=== PATIENT | male | born 1935 | race Caucasian/White ===

== ENCOUNTER 2022-05-10 22:40 | Inpatient (IN) | payer MEDICARE, BC, SELFPAY ==
[2022-05-10 22:41] VITALS: BMI 24.3
[2022-05-10 22:43] VITALS: BP 117/92; PULSE 78; PULSE 96; RESP 16; TEMP 36.9; O2SAT 97; O2SAT 98
--- NOTE | 2022-05-10 22:48 | XRR_ITS ---
PROCEDURE INFORMATION: Exam: XR Abdomen Exam date and time: 05/10/2022 11:20 PM Age: 86 years old Clinical indication: Condition or disease; Other: Rectal CA. Colostomy 10 days ago; Prior surgery; Surgery date: <1 month; Additional info: Constipation TECHNIQUE: Imaging protocol: Radiologic exam of the abdomen. Views: Frontal supine view of the abdomen. 1 View. COMPARISON: No relevant prior studies available. FINDINGS: Gastrointestinal tract: Dilated small bowel loops measuring up to 4.6 cm suggestive of an obstruction. Bones/joints: Unremarkable. Soft tissues: Subcutaneous emphysema suspected in the inguinal regions bilaterally of uncertain etiology, consider correlation with CT scan. XR/XR KUB [id number] IMPRESSION: 1. Dilated small bowel loops measuring up to 4.6 cm suggestive of an obstruction. 2. Subcutaneous emphysema suspected in the inguinal regions bilaterally of uncertain etiology, consider correlation with CT scan.
[2022-05-10 22:56] VITALS: BP 122/94; O2SAT 95
[2022-05-10 23:00] VITALS: BP 122/94; O2SAT 97
--- NOTE | 2022-05-10 23:04 | CTR_ITS ---
PROCEDURE INFORMATION: Exam: CT Abdomen And Pelvis Without Contrast Exam date and time: 05/10/2022 11:30 PM Age: 86 years old Clinical indication: Abdominal pain; Generalized; Prior surgery; Surgery date: <1 month; Patient HX: Diffuse abd pain with decreased colostomy output. Bowel resection with colostomy eight days ago. History of colorectal cancer. TECHNIQUE: Imaging protocol: Computed tomography of the abdomen and pelvis without contrast. Radiation optimization: All CT scans at this facility use at least one of these dose optimization techniques: automated exposure control; mA and/or kV adjustment per patient size (includes targeted exams where dose is matched to clinical indication); or iterative reconstruction. REPORTING DATA: Count of CT and Cardiac NM exams in prior 12 months: This patient has received 0 known CTs and 0 known cardiac nuclear medicine studies in the 12 months prior to the current study. COMPARISON: CR (ABDOMEN, ) 05/10/2022 11:20 PM RADIATION DOSE METRICS: Total DLP (mGy-cm): 884.64 FINDINGS: Lungs: Bibasilar atelectasis. Coronary arteries: Coronary artery atherosclerotic calcifications. Liver: Normal. No mass. Gallbladder and bile ducts: Cholelithiasis suspected. Pancreas: Normal. No ductal dilation. Spleen: Normal. No splenomegaly. Adrenal glands: Normal. No mass. Kidneys and ureters: Bilateral renal cysts, negative for follow-up advised. Left kidney hyperdense cyst. Right kidney punctate parenchymal benign calcification. Stomach and bowel: Dilated small bowel loops to 4.5 cm may reflect an evolving obstruction, potentially high-grade given the degree of dilation with a possible transition point seen right abdomen where a narrowed loop of bowel is seen deep to the ostomy site. Right paramidline colostomy seen. Appendix: No evidence of appendicitis. Intraperitoneal space: Trace free air in the abdomen, may be related to recent colostomy. Vasculature: Unremarkable. No abdominal aortic aneurysm. Lymph nodes: Unremarkable. No enlarged lymph nodes. Urinary bladder: Unremarkable as visualized. Reproductive: Prostate gland enlarged indenting the base of the urinary bladder. Bones/joints: Unremarkable. No acute fracture. Soft tissues: Subcutaneous emphysema about the abdomen and pelvis may be related to recent surgery. CT/CT abdomen pelvis wo con [id number] IMPRESSION: 1. Dilated small bowel loops to 4.5 cm may reflect an evolving obstruction, potentially high-grade given the degree of dilation with a possible transition point seen right abdomen where a narrowed loop of bowel is seen deep to the ostomy site. 2. Trace free air in the abdomen, may be related to recent colostomy. 3. Bilateral renal cysts, negative for follow-up advised. 4. Left kidney hyperdense cyst. 5. Right kidney punctate parenchymal benign calcification. 6. Coronary artery atherosclerotic calcifications. 7. Bibasilar atelectasis. 8. Subcutaneous emphysema about the abdomen and pelvis may be related to recent surgery. 9. Right paramidline colostomy seen. 10. Cholelithiasis suspected. 11. Prostate gland enlarged indenting the base of the urinary bladder. COMMENTS: Consistent with the [employer]'s Incidental Findings Committee white paper (J Am Kaelyn Radiol 2018): Any incidental renal lesion less than 1 cm or classified as too small to characterize, or any incidental cystic renal lesion characterized as simple-appearing, is likely benign. No follow-up imaging is recommended for these lesions per consensus recommendations based on imaging criteria.
--- NOTE | 2022-05-10 23:12 | ED_ITS ---
HPI - Abdominal Pain General: Chief Complaint: Abdominal Pain Stated Complaint: DECREASED COLOSTOMY OUTPUT Time Seen by Provider: 05/10/22 22:43 Source: patient Mode of arrival: ambulatory Limitations: no limitations History of Present Illness: 86-year-old male has a history of colon cancer he was admitted at [facility] 8 days ago had a bowel resection with a colostomy states that he initially was having some difficulty going to the bathroom they started him on some laxatives he states he was then having diarrhea and they give him Imodium this morning discharging this afternoon he states that he has not had any output and has had some nausea he is worried about his obstruction he denies any pain denies any fever. Associated Symptoms: Reports constipation and nausea; Denies chills, dysuria and fever(s) Review of Systems Const: Denies: fever(s), chills, body aches or change in appetite Eyes: Denies: blurry vision or eye discomfort ENMT: Denies: throat pain or dental pain Card: Denies: chest pain Resp: Denies: dyspnea GI: Reports: nausea and constipation : Denies: dysuria Musc: Denies: neck pain or back pain Skin/Breast: Denies: rash Neuro: Denies: headache(s) Psych: Denies: depression Alonso/Lymph: Denies: easy bruising All/Imm: Denies: urticaria PFSH ED PFSH: Medical History (Updated 05/11/22 @ 01:04 by Geno Navarrete MD) Colon cancer Social History (Updated 05/10/22 @ 23:12 by Geno Navarrete MD) Substance/Drug Use: never Physical Exam Const: COMMON NORMALS: no acute distress, patient oriented x3 and healthy appearing HENMT: COMMON NORMALS: normocephalic and atraumatic HEAD & SCALP: normocephalic and atraumatic Eye: COMMON NORMALS: Equal, round and reactive pupils present and EOMs intact bilaterally PUPIL: Yes Equal, round and reactive pupils present Neck/C-Spine: COMMON NORMALS: full ROM and supple Chest: COMMONS NORMALS: normal inspection of the chest and normal palpation of entire chest wall Resp: COMMON NORMALS: normal respiratory effort, No retractions, No use of accessory muscles and clear to auscultation bilaterally AUSCULTATION: clear to auscultation bilaterally Cardio: COMMON NORMALS: regular rate, regular rhythm and No murmurs present (Cardio) RATE: regular rate RHYTHM: regular rhythm GI: COMMON NORMALS: Normal to inspection, nondistended, normoactive bowel sounds present, Soft to palpation, non-tender and no masses PALPATION: Yes Soft to palpation OTHER: Abdomen is nondistended or tender ostomy is in place minimal output in the ostomy Extremity: COMMON NORMALS: normal to inspection and full ROM Neuro: COMMON NORMALS: patient oriented x3, moves all extremities and no focal motor deficits Psych: COMMON NORMALS: mental status grossly normal, Normal thought process present and cooperative THOUGHT PROCESS: Normal thought process present Skin: COMMON NORMALS: no rashes or lesions noted and no wounds GENERAL SKIN EXAM: no rashes or lesions noted Course Vital Signs: Vital signs: Vital Signs Temperature 98.4 F 05/10/22 22:43 Pulse Rate 78 05/10/22 22:43 Respiratory Rate 16 05/10/22 22:43 Blood Pressure 107/74 05/11/22 00:00 Pulse Oximetry 97 05/10/22 23:00 Oxygen Delivery Me thod 05/10/22 22:43 MDM - Abdominal Pain Medical Decision Making Patient presents for small bowel obstruction his abdominal exam here is benign white count is normal I spoke to the hospitalist will place an NG tube and admit at this time. Lab Data 05/10/22 22:53 05/10/22 22:53 Labs/Radiology: Radiology Impressions KUB X-Ray 05/10/22 22:48 IMPRESSION: 1. Dilated small bowel loops measuring up to 4.6 cm suggestive of an obstruction. 2. Subcutaneous emphysema suspected in the inguinal regions bilaterally of uncertain etiology, consider correlation with CT scan. Abdomen/Pelvis CT 05/10/22 23:04 IMPRESSION: 1. Dilated small bowel loops to 4.5 cm may reflect an evolving obstruction, potentially high-grade given the degree of dilation with a possible transition point seen right abdomen where a narrowed loop of bowel is seen deep to the ostomy site. 2. Trace free air in the abdomen, may be related to recent colostomy. 3. Bilateral renal cysts, negative for follow-up advised. 4. Left kidney hyperdense cyst. 5. Right kidney punctate parenchymal benign calcification. 6. Coronary artery atherosclerotic calcifications. 7. Bibasilar atelectasis. 8. Subcutaneous emphysema about the abdomen and pelvis may be related to recent surgery. 9. Right paramidline colostomy seen. 10. Cholelithiasis suspected. 11. Prostate gland enlarged indenting the base of the urinary bladder. COMMENTS: Consistent with the [employer]'s Incidental Findings Committee white paper (J Am Kaelyn Radiol 2018): Any incidental renal lesion less than 1 cm or classified as too small to characterize, or any incidental cystic renal lesion characterized as simple-appearing, is likely benign. No follow-up imaging is recommended for these lesions per consensus recommendations based on imaging criteria. Laboratory Results WBC 8.8 10^3/uL (4.0-10.0) 05/10/22 22:53 RBC 5.16 10^6/uL (4.1-5.3) 05/10/22 22:53 Hgb 14.7 g/dL (11.7-16.6) 05/10/22 22:53 Hct 44.8 % (42.0-52.0) 05/10/22 22:53 MCV 86.8 fl (80-94) 05/10/22 22:53 MCH 28.5 pg (28.0-34.0) 05/10/22 22:53 MCHC 32.8 g/dL (30.0-36.0) 05/10/22 22:53 RDW 13.4 % (12.1-15.1) 05/10/22 22:53 Plt Count 304 10^3/cmm (130-400) 05/10/22 22:53 MPV 10.3 fL (7.4-10.4) 05/10/22 22:53 Lymph % (Auto) Not Reportable 05/10/22 22:53 [place] % (Auto) Not Reportable 05/10/22 22:53 Lymph # (Auto) Not Reportable 05/10/22 22:53 [place] # (Auto) Not Reportable 05/10/22 22:53 Total Counted 100 (0-100) 05/10/22 22:53 Atypical Lymphs % 0.0 % (0-5) 05/10/22 22:53 Absolute Neutrophils 6.7 10^3/cmm (1.4-6.5) H 05/10/22 22:53 Segmented Neutrophils 72 % 05/10/22 22:53 Abs Segm Neuts (Man) 6.3 10/cmm (1.6-7.1) 05/10/22 22:53 Band Neutrophils 4.0 % 05/10/22 22:53 Abs Band Neuts (Man) 0.4 10^3/cmm (0.0-1.2) 05/10/22 22:53 Absolute Lymphocytes 0.6 10^3/cmm (1.2-3.4) L 05/10/22 22:53 Lymphocytes (Manual) 7 % 05/10/22 22:53 Monocytes (Manual) 8.0 % 05/10/22 22:53 Absolute Monocytes 0.7 10^3/cmm (0.1-0.6) H 05/10/22 22:53 Eosinophils (Manual) 1 % 05/10/22 22:53 Absolute Eosinophils 0.0 10^3/cmm (0.0-0.7) 05/10/22 22:53 Basophils (Manual) 0.0 % 05/10/22 22:53 Absolute Basophils 0.0 10^3/cmm (0.0-0.2) 05/10/22 22:53 Metamyelocytes 1.0 % 05/10/22 22:53 Myelocytes 7.0 % 05/10/22 22:53 Platelet Estimate Normal (Normal) 05/10/22 22:53 Sodium 128 mmol/L (136-145) L 05/10/22 22:53 Potassium 4.8 mmol/L (3.5-5.1) 05/10/22 22:53 Chloride 88 mmol/L (98-107) L 05/10/22 22:53 Carbon Dioxide 27 mmol/L (22-29) 05/10/22 22:53 Anion Gap 17.8 (5-19) 05/10/22 22:53 BUN 24 mg/dL (8-23) H 05/10/22 22:53 Creatinine 1.2 mg/dL (0.7-1.2) 05/10/22 22:53 GFR Calculation Not Reportable 05/10/22 22:53 Glucose 115 mg/dL (65-115) 05/10/22 22:53 Calculated Osmolality 271 mOsm/kg (285-295) L 05/10/22 22:53 Lactate 1.6 mmol/L (0.5-2.2) 05/10/22 22:53 Calcium 10.0 mg/dL (8.5-10.5) 05/10/22 22:53 Total Bilirubin 0.7 mg/dL (0.15-1.2) 05/10/22 22:53 AST 37 U/L (0-40) 05/10/22 22:53 ALT 40 U/L (0-41) 05/10/22 22:53 Alkaline Phosphatase 86 U/L (40-130) 05/10/22 22:53 Total Protein 6.9 g/dL (6.6-8.7) 05/10/22 22:53 Albumin 3.8 g/dL (3.5-5.2) 05/10/22 22:53 Globulin 3.1 g/dL (1.3-4.6) 05/10/22 22:53 Lipase 35 U/L (13-60) 05/10/22 22:53 Discharge Plan Discharge Patient Disposition: Admitted As Inpatient Clinical Impression: Small bowel obstruction, Colon cancer Referrals: Kushal Guerrier MD [Primary Care Provider] - Coding Level of Care Code ED [employer] Supervisor for Sindy Hdez
[2022-05-10 23:26] LABS: Alanine Aminotransferase 40 U/L (0-41); Albumin Level 3.8 g/dL (3.5-5.2); Alkaline Phosphatase 86 U/L (40-130); Anion Gap 17.8 (5-19); Aspartate Amino Transferase 37 U/L (0-40); Blood Urea Nitrogen 24 mg/dL (8-23); Carbon Dioxide 27 mmol/L (22-29); Chloride 88 mmol/L (98-107); Globulin 3.1 g/dL (1.3-4.6); Glucose 115 mg/dL (65-115); Lipase 35 U/L (13-60); Osmolality Calculated 271 mOsm/kg (285-295); Potassium 4.8 mmol/L (3.5-5.1); Sodium 128 mmol/L (136-145); Total Bilirubin 0.7 mg/dL (0.15-1.2); Total Protein 6.9 g/dL (6.6-8.7)
[2022-05-10 23:30] VITALS: BP 128/86
[2022-05-10 23:57] LABS: Hematocrit 44.8 % (42.0-52.0); Hemoglobin 14.7 g/dL (11.7-16.6); Mean Corpuscular HGB Conc 32.8 g/dL (30.0-36.0); Mean Corpuscular Hemoglobin 28.5 pg (28.0-34.0); Mean Corpuscular Volume 86.8 fl (80-94); Mean Platelet Volume 10.3 fL (7.4-10.4); Platelet Count 304 10^3/cmm (130-400); Red Blood Count 5.16 10^6/uL (4.1-5.3); Red Cell Distribution Width 13.4 % (12.1-15.1); White Blood Count 8.8 10^3/uL (4.0-10.0)
[2022-05-11] VITALS (10 sets, daily range): BP systolic 99–128; BP diastolic 55–94; PULSE 67–87; RESP 16–18; TEMP 36.5–37; O2SAT 90–99
[2022-05-11 00:10] LABS: Slide Review Slide Review Perform
[2022-05-11 00:11] LABS: Total Cells Counted 100 (0-100)
[2022-05-11 00:18] LABS: Absolute Segmented Neutrophil 6.3 10/cmm (1.6-7.1); Band Neutrophils Absolute 0.4 10^3/cmm (0.0-1.2); Eosinophils 1 %; Lymphocytes 7 %; Monocytes Absolute 0.7 10^3/cmm (0.1-0.6); Segmented Neutrophils 72 %
[2022-05-11 00:19] LABS: Absolute Neutrophil 6.7 10^3/cmm (1.4-6.5); Lymphocytes Absolute 0.6 10^3/cmm (1.2-3.4); Platelet Estimate Normal (Normal)
[2022-05-11 00:29] LABS: Lactate (Lactic Acid level) 1.6 mmol/L (0.5-2.2)
[2022-05-11] MEDS: LORazepam 2 mg/mL INJ 1 mL 0.5 MG IVP (01:08)
--- NOTE | 2022-05-11 01:24 | XRR_ITS ---
PROCEDURE INFORMATION: Exam: XR Chest Exam date and time: 05/11/2022 1:41 AM Age: 86 years old Clinical indication: Device placement; Ng tube; Patient HX: Check S/P ng placement. TECHNIQUE: Imaging protocol: Radiologic exam of the chest. Views: 1 view. COMPARISON: CT abdomen pelvis con [id number] 05/10/2022 11:30 PM FINDINGS: Tubes, catheters and devices: Nasogastric tube is in good position. Lungs: Unremarkable. No consolidation. Pleural spaces: Unremarkable. No pleural effusion. No pneumothorax. Heart/Mediastinum: Unremarkable. No cardiomegaly. Bones/joints: Unremarkable. Soft tissues: Small amount of soft tissue gas in the lower chest/upper abdominal wall. XR/XR chest 1V portable [id number] IMPRESSION: Nasogastric tube is in good position.
--- NOTE | 2022-05-11 03:13 | PC.NURSE ---
patient's son was at bedside at the time of arrival on the [facility] surg unit. The pt has an NG tube that was placed in the ED. The pt has a new colostomy that was placed at [facility], the bag was emptied and stoma assessed and appeared to be normal. Since the NG tube placement the pt reports decrease in abd discomfort.
--- NOTE | 2022-05-11 05:00 | P.HP_ITS ---
Providers/Chief Complaint Admitting Physician: Katherine Swift MD Primary Care Provider: Kushal Guerrier MD Chief Complaint: DECREASED COLOSTOMY OUTPUT History of Present Illness Crystal Fletcher is a 86 year old male with history of rectal cancer that was diagnosed in August 2021, status post chemoradiation at [facility], underwent recent surgery at [facility], currently has a colostomy in place. He was just discharged from the hospital yesterday. It appears his postop course was compl icated by ileus for which she had an NG tube during the course of his admission there. By the time of discharge she was having good stoma output. In fact it appears he was started to have extremely loose bowel movements multiple times a day through his colostomy therefore he was advised to take Imodium at home. He returned home yesterday afternoon and shortly afterwards noticed that his belly was distended, and he started feeling extremely nauseous. He had abdominal pain and noticed that his stoma did not have any output. He called his surgeon's office who advised him to present to the nearest emergency room. CT of his abdomen and pelvis showed dilated small bowel loops up to 4.5 cm which may represent an evolving obstruction, potentially high-grade given the degree of dilatation with a possible transition point seen near the right abdomen. Trace free air likely related to recent surgery. Subcutaneous emphysema. Review of Systems General: Reports: 10 or more systems reviewed and unremarkable except in HPI and below Const: Denies: fever(s), chills or body aches Eyes: Denies: change in vision, blurry vision or photophobia ENMT: Reports: hoarseness; Denies: throat pain, enlarged tonsils, odynophagia or nasal congestion Card: Denies: chest pain, palpitations, irregular heart rhythm, edema, swelling of feet/ankles, lightheadedness, pre-syncope, dyspnea on exertion or orthopnea Resp: Denies: dyspnea, productive cough, non-productive cough, wheezing, stridor, pain on inspiration, change in phlegm color, hemoptysis or chest congestion GI: Denies: abdominal pain, nausea, vomiting, hematemesis, coffee ground nalini sis, dysphagia, heartburn, diarrhea, constipation, GI cramping, change in stool character, hematochezia or melena : Denies: flank pain, dysuria, urinary frequency, urinary urgency, urinary hesitancy or hematuria Musc: Denies: neck pain, back pain, extremity pain, joint swelling, joint warmth or deformity Neuro: Denies: headache(s), numbness in extremities, weakness in extremities, sensory changes, difficulty walking, frequent falls, dizziness, vertigo, behavioral changes, Slurred speech present or seizure-like activity Psych: Denies: anxiety, depression, suicidal ideation or homicidal ideation Endo: Denies: polyuria, polydipsia, tired all the time, cold intolerance or hot flashes Alonso/Lymph: Denies: easy bruising or easy bleeding Medications/Allergies Allergies Allergy/AdvReac Type Severity Reaction Status Date / Time No Known Allergies Allergy Verified 05/10/22 22:55 PFSH Acute PFSH: Medical History (Updated 05/11/22 @ 01:04 by Geno Navarrete MD) Colon cancer Social History (Updated 05/10/22 @ 23:12 by Geno Navarrete MD) Substance/Drug Use: never Vitals/I&O/Wt Last Vital Signs Temp 98.3 F 05/11/22 03:56 Pulse 81 05/11/22 03:56 Resp 17 05/11/22 03:56 BP 115/67 05/11/22 03:56 Pulse Ox 99 05/11/22 03:56 O2 Del Method 05/11/22 03:56 05/10/22 05/10/22 05/11/22 14:59 22:59 06:59 Output Total 1000 / 1000 Balance -1000 / -1000 Weight last 48 hrs Weight 95.254 kg Physical Exam Narrative: General: No acute distress, AO x3 HEENT: PERRLA, pupils bilaterally equal and reactive, pallors not present Chest: Normal vesicular breath sounds, no added sounds, equal good air entry bilaterally CVS: S1-S2 regular, no murmurs, no tachycardia, no gallops, no rubs Abdomen: Soft, mildly distended, nontender, colostomy in place Neuro: No focal deficits, no facial deformity, AO x3, power 5/5 in all limbs Data 05/10/22 22:53 05/10/22 22:53 Other Labs: CT/CT abdomen pelvis wo con [id number] IMPRESSION: 1. ? Dilated small bowel loops to 4.5 cm may reflect an evolving obstruction, potentially high-grade given the degree of dilation with a possible transition point seen right abdomen where a narrowed loop of bowel is seen deep to the ostomy site. 2. ? Trace free air in the abdomen, may be related to recent colostomy. 3. ? Bilateral renal cysts, negative for follow-up advised. 4. ? Left kidney hyperdense cyst. 5. ? Right kidney punctate parenchymal benign calcification. 6. ? Coronary artery atherosclerotic calcifications. 7. ? Bibasilar atelectasis. 8. ? Subcutaneous emphysema about the abdomen and pelvis may be related to recent surgery. 9. ? Right paramidline colostomy seen. 10. ? Cholelithiasis suspected. 11.? Prostate gland enlarged indenting the base of the urinary bladder. A&P Assessment and plan (1) Small bowel obstruction: Small bowel obstrcution on CT after recently having ileus post operatively NGT was inserted in the ER, pulled out by patient after getting up to the floor. He does not wish 1 to be reinserted at this time. Currently there is stool in his stoma. About 500 cc greenish material suctioned from the NG. General surgery has been consulted. N.p.o. until surgery assessment. Attempt was made to transfer patient to [facility] from the ER however [facility] declined transfer citing there are no beds. (2) Colon cancer: Attestations Medical Necessity Statement*: Anticipate less than 2 midnight stay Coding Level of Care Code Acute Code for Chg Fwd Moderate MDM includes number and complexity of problems actively addressed during encounter, amount and/or complexity of data reviewed/ordered and described risk of complication, morbidity or mortality of management as documented Diagnoses Small bowel obstruction K56.609 Colon cancer C18.9
--- NOTE | 2022-05-11 05:28 | PC.NURSE ---
This nurse found the pts NG tube pulled out by the pt upon rounding. This nurse informed the pt that wants it placed back in. This nurse attempted to re insert another NG tube and the pt became very agitated and combative. This nurse immediately let the son know what had taken place. The charge nurse has been made aware of the situation as well. The pt was informed of the possible risk of not getting another NG tube placed by this nurse with the son at bedside and being in agreement that his father is able to make that decision at this time to leave the NG tube out. The pt verbalized understanding of the risk and is still refusing the NG tube at this time, with the Son being completely aware of the entire situation and a witness to the conversation.
--- NOTE | 2022-05-11 05:45 | PC.NURSE ---
This nurse notified in person about the entire situation of the pt not allowing anyone to re insert an NG tube and refusing all ordered medications and becoming very agitated. No new orders have been received.
[2022-05-11] MEDS: dextrose 5%-sod chloride 0.9% 1,000 ML 75 ML IV ×2 (07:06→20:11)
[2022-05-11] MEDS: enoxaparin 40 mg/0.4 mL Syringe SUBCUT (07:09)
[2022-05-11] MEDS: famotidine 20 mg/2 mL INJ IVP ×2 (07:09→18:36)
--- NOTE | 2022-05-11 08:44 | PC.PHAR ---
pt and pts family verified pts medications-brought in a med list from [facility] also states the pt takes 2 blood pressure meds prn amlodipine 5mg qd prn (90d/s) and benazepril 20mg daily prn (30d/s)filled 12/01/21-states the pt has ultram but doesnt normally take ext shows last filled 01/13/22 5d/s-pt states he takes his metoprolol er 12.5mg daily, flomax 0.8mg hs and levothyroxine 25mg daily every day-
--- NOTE | 2022-05-11 13:01 | PM.CONSULT ---
Providers/Reason For Consult Consulting Physician/Specialty*: Dr. Jhonathan Kenny, DO/General surgery Reason for Consult*: Small bowel obstruction Attending Physician: Erik Stover MD Primary Care Provider: Kushal Guerrier MD History of Present Illness History of Present Illness Crystal Fletcher is a 86 year old male, who just underwent a colorectal resection for rectal cancer at [facility] approximately 9 days ago. He was discharged from [facility] yesterday after having a high output right-sided colostomy and then being given Imodium. Later in the day he developed abdominal distention and nausea. Denies any emesis. He reports that he called the hospital and was told to go to the nearest emergency room. While in the ER here he had an NG tube placed and reportedly 1.5 L was suctioned off. He has since had liquid output from his colostomy. He denies any current nausea or abdominal pain. His ostomy bag has a charcoal vent, therefore it is difficult to ascertain the amount of flatus coming out of the colostomy. CT abdomen pelvis done in the ER shows small bowel dilation up to 4.5 cm with possible transition point near the ostomy. Review of Systems General: Reports: 10 or more systems reviewed and unremarkable except in HPI and below Medications/Allergies Home Medications Medication Instructions Recorded Confirmed Last Taken Type acetaminophen 325 mg tablet 650 mg PO Q6H PRN Pain 05/11/22 05/11/22 Unknown History amlodipine 5 mg tablet 5 mg PO DAILY PRN Blood Pressure 05/11/22 05/11/22 Unknown History aspirin 81 mg tablet,delayed 81 mg PO QAM 05/11/22 05/11/22 Unknown History release benazepril 20 mg tablet 20 mg PO DAILY PRN Blood Pressure 05/11/22 05/11/22 Unknown History levothyroxine 25 mcg tablet 25 mcg PO QAM 05/11/22 05/11/22 Unknown History loperamide 2 mg capsule 2 mg PO Q4H PRN Diarrhea 05/11/22 05/11/22 Unknown History metoprolol succinate 25 mg 12.5 mg PO DAILY 05/11/22 05/11/22 Unknown History tablet,extended release 24 hr tamsulosin 0.4 mg capsule 0.8 mg PO BEDTIME 05/11/22 05/11/22 Unknown History tramadol 50 mg tablet 50 mg PO Q4H PRN Pain 05/11/22 05/11/22 Unknown History Allergies Allergy/AdvReac Type Severity Reaction Status Date / Time lorazepam Allergy ADR-Halluci Verified 05/11/22 08:30 nating Current Medications Generic Name Dose Route Start Last Admin Trade Name Reneq PRN Reason Stop Dose Admin Enoxaparin Sodium 40 mg 05/11/22 05:00 05/11/22 07:09 Enoxaparin 40 Mg/0.4 Ml Syringe SUBCUT 40 mg Q24H NORIS Administration Famotidine 20 mg 05/11/22 05:00 05/11/22 07:09 Famotidine 20 Mg/2 Ml Inj IVP 20 mg Q12H NORIS Administration Dextrose/Sodium Chloride 1,000 mls @ 75 mls/hr 05/11/22 05:00 05/11/22 07:06 Dextrose 5%-Sod Chloride 0.9% IV 75 mls/hr .[id number] NORIS Administration PFSH Acute PFSH: Medical History Colon cancer Social History Substance/Drug Use: never Vitals/I&O/Wt Last Vital Signs Temp 97.7 F 05/11/22 11:37 Pulse 73 05/11/22 11:37 Resp 18 05/11/22 11:37 BP 105/60 05/11/22 11:37 Pulse Ox 95 05/11/22 11:37 O2 Del Method 05/11/22 11:37 05/10/22 05/11/22 05/11/22 22:59 06:59 14:59 Output Total 1050 / 1050 100 / 100 Balance -1050 / -1050 -100 / -100 Weight last 48 hrs Weight 210 lb Physical Exam Narrative: General : Patient is well developed , no acute distress, oriented x3 Head : Normal cephalic, a-traumatic. Ears : Pinnae and external canal are normal. Hearing is normal. Eyes : PERRLA, Sclera and injection are normal. No conjunctival discharge. Nose : Mucous membranes are without erythema. Throat : buccal mucosa is normal, gums are without significant recession or hypertrophy. Lungs : Equal chest rise bilaterally, no use of accessory muscles, trachea is midline. Cor : Rate and rhythm are normal. Abdomen : Soft, ND, NT, no g/r/m Ostomy is pink patent and producing Extremities : No edema, no cyanosis or clubbing, dorsalis pedis pulses are present bilaterally, non-tender to palpation of calves. Upper extremities are normal bilaterally. Back : non-tender to palpation, no CVA tenderness. Neuro : CN II - XII intact, Upper and lower extremities have equal and full strength Data 05/10/22 22:53 05/10/22 22:53 A&P Assessment and plan (1) Small bowel obstruction: Plan Small bowel obstruction is resolving as there is colostomy output now He pulled out his NG tube overnight IV fluids Clear liquid diet Reglan 5 mg every 6 scheduled Conservative management for now. Transferred to [facility] if possible. If he tolerates clear liquids and continues to have ostomy output, we will advance his diet tomorrow for discharge Coding Level of Care Code Acute Code for Chg Fwd Diagnoses Small bowel obstruction K56.609
--- NOTE | 2022-05-11 14:06 | PM.PN ---
Subjective Subjective: Patient was seen this morning, he tells me he feels a lot better, no episodes of nausea or vomiting overnight, he pulled out his NG tube, he is having output from his colostomy Vitals/I&O/Wt Last Vital Signs Temp 97.7 F 05/11/22 11:37 Pulse 73 05/11/22 11:37 Resp 18 05/11/22 11:37 BP 105/60 05/11/22 11:37 Pulse Ox 95 05/11/22 11:37 O2 Del Method 05/11/22 11:37 05/10/22 05/11/22 05/11/22 22:59 06:59 14:59 Output Total 1050 / 1050 100 / 100 Balance -1050 / -1050 -100 / -100 Weight last 48 hrs Weight 95.254 kg Physical Exam Const: COMMON NORMALS: no acute distress and patient oriented x3 Resp: COMMON NORMALS: normal respiratory effort, No retractions, No use of accessory muscles and clear to auscultation bilaterally AUSCULTATION: clear to auscultation bilaterally Cardio: COMMON NORMALS: regular rate, regular rhythm, S1 normal heart sound present and S2 normal heart sound present RATE: regular rate RHYTHM: regular rhythm HEART SOUNDS: S1 normal heart sound present and S2 normal heart sound present GI: COMMON NORMALS: Normal to inspection, nondistended, normoactive bowel sounds present and non-tender OTHER: Colostomy bag in place, with stool Extremity: COMMON NORMALS: no pedal edema Neuro: COMMON NORMALS: patient oriented x3 Psych: COMMON NORMALS: mental status grossly normal Data 05/10/22 22:53 05/10/22 22:53 A&P Assessment and plan (1) Small bowel obstruction: Small bowel obstrcution on CT after recently having ileus post operatively NGT was inserted in the ER, pulled out by patient after getting up to the floor. He does not wish 1 to be reinserted at this time. Currently there is stool in his stoma. About 500 cc greenish material suctioned from the NG. General surgery has been consulted. N.p.o. until surgery assessment. Attempt was made to transfer patient to [facility] from the ER however [facility] declined transfer citing there are no beds. Currently no nausea, vomiting (2) Colon cancer: Attestations Medical Necessity Statement*: Patient requires hospitalization for small bowel obstruction Diagnoses Small bowel obstruction K56.609 Colon cancer C18.9
[2022-05-12] VITALS (9 sets, daily range): BP systolic 99–126; BP diastolic 58–84; PULSE 68–81; RESP 17–18; TEMP 36.3–36.8; O2SAT 94–98
[2022-05-12] MEDS: enoxaparin 40 mg/0.4 mL Syringe SUBCUT (05:14)
[2022-05-12] MEDS: famotidine 20 mg/2 mL INJ IVP ×2 (05:14→17:36)
[2022-05-12 05:52] LABS: Basophils # 0.1 10^3/uL (0.0-0.1); Basophils % 0.9 %; Eosinophils # 0.3 10^3/uL (0.0-0.8); Eosinophils % 3.9 %; Hemoglobin 12.3 g/dL (11.7-16.6); Lymphocytes # 0.6 10^3/uL (0.8-4.8); Lymphocytes % 7.6 %; Mean Corpuscular HGB Conc 31.5 g/dL (30.0-36.0); Mean Corpuscular Hemoglobin 28.8 pg (28.0-34.0); Mean Corpuscular Volume 91.3 fl (80-94); Mean Platelet Volume 10.5 fL (7.4-10.4); Monocytes % 13.1 %; Neutrophils # 4.94 10^3/uL (1.8-7.7); Neutrophils % 65.8 %; Nucleated Red Blood Cells % 0 %; Platelet Count 230 10^3/cmm (130-400); Red Blood Count 4.27 10^6/uL (4.1-5.3); Red Cell Distribution Width 13.9 % (12.1-15.1); White Blood Count 7.5 10^3/uL (4.0-10.0)
[2022-05-12 06:08] LABS: Alanine Aminotransferase 31 U/L (0-41); Albumin Level 3.2 g/dL (3.5-5.2); Alkaline Phosphatase 76 U/L (40-130); Blood Urea Nitrogen 17 mg/dL (8-23); Calcium 9.1 mg/dL (8.5-10.5); Carbon Dioxide 22 mmol/L (22-29); Chloride 96 mmol/L (98-107); Globulin 2.3 g/dL (1.3-4.6); Glucose 100 mg/dL (65-115); Magnesium 1.9 mg/dL (1.7-2.3); Osmolality Calculated 272 mOsm/kg (285-295); Sodium 130 mmol/L (136-145); Total Bilirubin 0.6 mg/dL (0.15-1.2); Total Protein 5.5 g/dL (6.6-8.7)
[2022-05-12 06:23] LABS: Anion Gap 16.4 (5-19); Aspartate Amino Transferase 31 U/L (0-40); Potassium 4.4 mmol/L (3.5-5.1)
[2022-05-12 06:26] LABS: Slide Review Slide Review Perform
--- NOTE | 2022-05-12 08:04 | PM.PN ---
Subjective Subjective: I think I'm doing okay. I can keep liquids down now. What is the plan from here? They told me in [place] that they would close my stoma in 8 weeks Vitals/I&O/Wt Last Vital Signs Temp 97.5 F L 05/12/22 07:32 Pulse 81 05/12/22 07:32 Resp 18 05/12/22 07:32 BP 106/69 05/12/22 07:32 Pulse Ox 96 05/12/22 07:32 O2 Del Method 05/12/22 07:32 05/11/22 05/12/22 05/12/22 22:59 06:59 14:59 Intake Total 1701.25 / 2551.25 240 / 2791.25 Output Total 300 / 400 620 / 1020 Balance 1401.25 / 2151.25 -380 / 1771.25 Weight last 48 hrs Weight 210 lb Physical Exam Narrative: Abdomen remains moderately distended. Stoma is pink and edematous consistent with recent surgery. Data 05/12/22 05:39 05/12/22 05:39 A&P Assessment and plan (1) Small bowel obstruction: Plan Partial ileostomy blockage with postoperative ileus. Continue liquid diet only for today, and if no better by tomorrow, consider water-soluble SBFT to r/o obstruction and reestablish continuity of small bowel function. Attestations Medical Necessity Statement*: Patient continues to manifest moderate abdominal distention, and warrants ongoing bowel rest/observation to affirm return of bowel function, as opposed to obstructed loop ileostomy. Diagnoses Small bowel obstruction K56.609 Time Spent (min) 20 Comment Review/interpretation of abdominal CT, assessment of stoma, discussion with staff.
[2022-05-12] MEDS: dextrose 5%-sod chloride 0.9% 1,000 ML 75 ML IV ×2 (10:06→21:24)
--- NOTE | 2022-05-12 10:18 | PC.CHAP ---
Pastoral Care Encounter/Spiritual Assessment Type of Contact [] Declined captain waiter/waitress visit [] Patient/Family/Request visit [] Outpatient visit [] Follow-up visit [] Physician referral [] Code/Alert [x] Routine visit [] Staff referral [] Actively dying [] Patient sleeping [] Family support [] [] Out of room [] Palliative care [] [x] Receiving care in room [] Pre-surgical visit [] Trauma [] Long length of stay [] ICU visit [] Other: Relational/Emotional Strength [] Patient feels connected with others/family/visitors/staff [] Distress [] Loneliness/isolation [] Abandonment Spirituality of Patient [] Person of Sujata [] Attends Mu-Ism of their Sujata [] Believes in Prayer [] Reads Bible or Scientology materials [] There are Spiritual issues to be addressed Screen Printing Press Operator Interventions [x] Prayer [] Active listening [] Non-anxious presence [] Spiritual/emotional support [] Crisis/trauma care [] Spiritual counseling [] Bereavement support [] Provided bereavement packet [] Provided Bible/devotional materials [] Provided toy/stuffed animal, coloring book to patient or family member [] Provided Communion [] Anointing/[place] [] Salvation [] Completed spiritual assessment [] Other: Impact on Illness or Injury [] Angry [] Fearful [] Anxious [] Often cries [] Exhaustion [] Unable to work [] Unable to attend taoism [] Unable to walk/stand [] Unable to read [] Unable to drive [] Unable to eat/drink [] Unable to sleep [] Unable to be with family [] Patient intubated [] Other: Summary Time spent with patient
--- NOTE | 2022-05-12 14:23 | P.PN_ITS ---
Subjective Subjective: Patient was seen this morning, he sitting up to the side of the bed, he has colostomy output, he feels better Vitals/I&O/Wt Last Vital Signs Temp 97.5 F L 05/12/22 12:00 Pulse 70 05/12/22 12:00 Resp 18 05/12/22 12:00 BP 119/73 05/12/22 12:00 Pulse Ox 96 05/12/22 12:00 O2 Del Method 05/12/22 12:00 05/11/22 05/12/22 05/12/22 22:59 06:59 14:59 Intake Total 1701.25 / 2551.25 240 / 2791.25 1360 / 1360 Output Total 300 / 400 620 / 1020 Balance 1401.25 / 2151.25 -380 / 1771.25 1360 / 1360 Weight last 48 hrs Weight 95.254 kg Physical Exam Const: COMMON NORMALS: no acute distress and patient oriented x3 Resp: COMMON NORMALS: normal respiratory effort, No retractions, No use of accessory muscles and clear to auscultation bilaterally AUSCULTATION: clear to auscultation bilaterally Cardio: COMMON NORMALS: regular rate, regular rhythm, S1 normal heart sound present and S2 normal heart sound present RATE: regular rate RHYTHM: regular rhythm HEART SOUNDS: S1 normal heart sound present and S2 normal heart sound present GI: COMMON NORMALS: Normal to inspection, nondistended, normoactive bowel sounds present and non-tender OTHER: Colostomy bag in place, colon tissue is pink and fleshy, has stool in colostomy bag Extremity: COMMON NORMALS: no pedal edema Neuro: COMMON NORMALS: patient oriented x3 Psych: COMMON NORMALS: mental status grossly normal Data 05/12/22 05:39 05/12/22 05:39 A&P Assessment and plan (1) Small bowel obstruction: Plan (1) Small bowel obstruction: Small bowel obstrcution on CT after recently having ileus post operatively NGT was inserted in the ER, pulled out by patient after getting up to the floor.? He does not wish 1 to be reinserted at this time. Currently there is stool in his stoma.? About 500 cc greenish material suctioned from the NG. General surgery has been consulted. Currently on clears Attempt was made to transfer patient to [facility] from the ER however [facility] declined [facility] citing there are no beds. Currently no nausea, vomiting (2) Colon cancer: Attestations Medical Necessity Statement*: Patient requires hospitalization for bowel obstruction Coding Level of Care Code Acute Code for Chg Fwd Diagnoses Small bowel obstruction K56.609
[2022-05-13 03:37] VITALS: BP 103/61; PULSE 73; RESP 18; TEMP 36.8; O2SAT 98
[2022-05-13] MEDS: enoxaparin 40 mg/0.4 mL Syringe SUBCUT (05:39)
[2022-05-13] MEDS: famotidine 20 mg/2 mL INJ IVP (05:40)
[2022-05-13 06:01] LABS: Basophils # 0.1 10^3/uL (0.0-0.1); Basophils % 1.1 %; Eosinophils # 0.3 10^3/uL (0.0-0.8); Eosinophils % 4.7 %; Hematocrit 39.5 % (42.0-52.0); Hemoglobin 12.8 g/dL (11.7-16.6); Lymphocytes % 14.8 %; Mean Corpuscular HGB Conc 32.4 g/dL (30.0-36.0); Mean Corpuscular Volume 89.6 fl (80-94); Mean Platelet Volume 10.2 fL (7.4-10.4); Monocytes # 0.9 10^3/uL (0.2-0.9); Monocytes % 14.5 %; Neutrophils # 3.62 10^3/uL (1.8-7.7); Nucleated Red Blood Cells % 0 %; Platelet Count 284 10^3/cmm (130-400); Red Blood Count 4.41 10^6/uL (4.1-5.3); Red Cell Distribution Width 13.8 % (12.1-15.1); White Blood Count 6.4 10^3/uL (4.0-10.0)
[2022-05-13 06:29] LABS: Alanine Aminotransferase 31 U/L (0-41); Albumin Level 3.5 g/dL (3.5-5.2); Alkaline Phosphatase 87 U/L (40-130); Anion Gap 15.1 (5-19); Aspartate Amino Transferase 26 U/L (0-40); Blood Urea Nitrogen 12 mg/dL (8-23); Calcium 9.5 mg/dL (8.5-10.5); Carbon Dioxide 23 mmol/L (22-29); Chloride 101 mmol/L (98-107); Globulin 2.6 g/dL (1.3-4.6); Glucose 138 mg/dL (65-115); Magnesium 2.2 mg/dL (1.7-2.3); Osmolality Calculated 282 mOsm/kg (285-295); Potassium 4.1 mmol/L (3.5-5.1); Sodium 135 mmol/L (136-145); Total Bilirubin 0.6 mg/dL (0.15-1.2); Total Protein 6.1 g/dL (6.6-8.7)
[2022-05-13 06:43] LABS: Neutrophils % 64.9 %
[2022-05-13 06:44] LABS: Slide Review Slide Review Perform
[2022-05-13 08:56] VITALS: BP 107/66; PULSE 76; RESP 17; TEMP 36.4; O2SAT 98
--- NOTE | 2022-05-13 10:31 | P.DS_ITS ---
Discharge Providers Date of Admission: 05/11/22 18:06 Date of Discharge: May 13, 2022 Attending Provider at Admission: Katherine Swift MD Attending Provider at Discharge: Erik Stover MD Primary Care Provider: Kushal Guerrier MD Diagnoses at Discharge Discharge Diagnosis (1) Small bowel obstruction: Status: Resolved Reason for Visit Reason for Visit: DECREASED COLOSTOMY OUTPUT Hospital Course Hospital Course Crystal Fletcher is a 86 year old male with history of rectal cancer that was diagnosed in August 2021, status post chemoradiation at [facility], underwent recent surgery at [facility], currently has a colostomy in place.? He was just discharged from the hospital yesterday.? It appears his postop course was complicated by ileus for which she had an NG tube during the course of his admission there.? By the time of discharge she was having good stoma output.? In fact it appears he was started to have extremely loose bowel movements multiple times a day through his colostomy therefore he was advised to take Imodium at home.? He returned home yesterday afternoon and shortly afterwards noticed that his belly was distended, and he started feeling extremely nauseous.? He had abdominal pain and noticed that his stoma did not have any output.? He called his surgeon's office who advised him to present to the nearest emergency room.? CT of his abdomen and pelvis showed dilated small bowel loops up to 4.5 cm which may represent an evolving obstruction, potentially high-grade given the degree of dilatation with a possible transition point seen near the right abdomen.? Trace free air likely related to recent surgery.? Subcutaneous emphysema. Patient was admitted to [facility] with concerns for small bowel obstruction, general he was consulted, he was monitored as inpatient, continues to have good colostomy output, diet was advanced, discharged home Physical Exam Const: COMMON NORMALS: no acute distress and patient oriented x3 Resp: COMMON NORMALS: normal respiratory effort, No retractions, No use of accessory muscles and clear to auscultation bilaterally AUSCULTATION: clear to auscultation bilaterally Cardio: COMMON NORMALS: regular rate, regular rhythm, S1 normal heart sound present and S2 normal heart sound present RATE: regular rate RHYTHM: regular rhythm HEART SOUNDS: S1 normal heart sound present and S2 normal heart sound present GI: COMMON NORMALS: Normal to inspection, nondistended, normoactive bowel sounds present and non-tender OTHER: Good colostomy output Extremity: COMMON NORMALS: no pedal edema Neuro: COMMON NORMALS: patient oriented x3 Psych: COMMON NORMALS: mental status grossly normal Discharge Data Studies Completed and Pending Completed Studies During Hospitalization Category Date Time Status CT abdomen pelvis wo con [id number] Stat Cat Scan 05/10/22 23:04 Completed XR KUB [id number] Stat Exams 05/10/22 22:48 Completed XR chest 1V portable [id number] Stat Exams 05/11/22 01:24 Completed Pending at discharge Category Date Time Status Complete Blood Count w/Auto AM LABS Lab 05/14/22 04:00 Ordered Complete Blood Count w/Auto AM LABS Lab 05/15/22 04:00 Ordered Comprehensive Metabolic Panel AM LABS Lab 05/14/22 04:00 Ordered Comprehensive Metabolic Panel AM LABS Lab 05/15/22 04:00 Ordered Magnesium AM LABS Lab 05/14/22 04:00 Ordered Magnesium AM LABS Lab 05/15/22 04:00 Ordered Radiology Impressions KUB X-Ray 05/10/22 22:48 IMPRESSION: 1. Dilated small bowel loops measuring up to 4.6 cm suggestive of an obstruction. 2. Subcutaneous emphysema suspected in the inguinal regions bilaterally of uncertain etiology, consider correlation with CT scan. Abdomen/Pelvis CT 05/10/22 23:04 IMPRESSION: 1. Dilated small bowel loops to 4.5 cm may reflect an evolving obstruction, potentially high-grade given the degree of dilation with a possible transition point seen right abdomen where a narrowed loop of bowel is seen deep to the ostomy site. 2. Trace free air in the abdomen, may be related to recent colostomy. 3. Bilateral renal cysts, negative for follow-up advised. 4. Left kidney hyperdense cyst. 5. Right kidney punctate parenchymal benign calcification. 6. Coronary artery atherosclerotic calcifications. 7. Bibasilar atelectasis. 8. Subcutaneous emphysema about the abdomen and pelvis may be related to recent surgery. 9. Right paramidline colostomy seen. 10. Cholelithiasis suspected. 11. Prostate gland enlarged indenting the base of the urinary bladder. COMMENTS: Consistent with the [employer]'s Incidental Findings Committee white paper (J Am Kaelyn Radiol 2018): Any incidental renal lesion less than 1 cm or classified as too small to characterize, or any incidental cystic renal lesion characterized as simple-appearing, is likely benign. No follow-up imaging is recommended for these lesions per consensus recommendations based on imaging criteria. Chest X-Ray 05/11/22 01:24 IMPRESSION: Nasogastric tube is in good position. Laboratory Results WBC 6.4 10^3/uL (4.0-10.0) 05/13/22 05:34 RBC 4.41 10^6/uL (4.1-5.3) 05/13/22 05:34 Hgb 12.8 g/dL (11.7-16.6) 05/13/22 05:34 Hct 39.5 % (42.0-52.0) L 05/13/22 05:34 MCV 89.6 fl (80-94) 05/13/22 05:34 MCH 29.0 pg (28.0-34.0) 05/13/22 05:34 MCHC 32.4 g/dL (30.0-36.0) 05/13/22 05:34 RDW 13.8 % (12.1-15.1) 05/13/22 05:34 Plt Count 284 10^3/cmm (130-400) 05/13/22 05:34 MPV 10.2 fL (7.4-10.4) 05/13/22 05:34 Neut % (Auto) 64.9 % 05/13/22 05:34 Lymph % (Auto) 14.8 % 05/13/22 05:34 [place] % (Auto) 14.5 % 05/13/22 05:34 Eos % (Auto) 4.7 % 05/13/22 05:34 Baso % (Auto) 1.1 % 05/13/22 05:34 Neut # (Auto) 3.62 10^3/uL (1.8-7.7) 05/13/22 05:34 Lymph # (Auto) 1.0 10^3/uL (0.8-4.8) 05/13/22 05:34 [place] # (Auto) 0.9 10^3/uL (0.2-0.9) 05/13/22 05:34 Eos # (Auto) 0.3 10^3/uL (0.0-0.8) 05/13/22 05:34 Baso # (Auto) 0.1 10^3/uL (0.0-0.1) 05/13/22 05:34 Nucleated RBC % (auto) 0 % 05/13/22 05:34 Total Counted 100 (0-100) 05/10/22 22:53 Atypical Lymphs % 0.0 % (0-5) 05/10/22 22:53 Absolute Neutrophils 6.7 10^3/cmm (1.4-6.5) H 05/10/22 22:53 Segmented Neutrophils 72 % 05/10/22 22:53 Abs Segm Neuts (Man) 6.3 10/cmm (1.6-7.1) 05/10/22 22:53 Band Neutrophils 4.0 % 05/10/22 22:53 Abs Band Neuts (Man) 0.4 10^3/cmm (0.0-1.2) 05/10/22 22:53 Absolute Lymphocytes 0.6 10^3/cmm (1.2-3.4) L 05/10/22 22:53 Lymphocytes (Manual) 7 % 05/10/22 22:53 Monocytes (Manual) 8.0 % 05/10/22 22:53 Absolute Monocytes 0.7 10^3/cmm (0.1-0.6) H 05/10/22 22:53 Eosinophils (Manual) 1 % 05/10/22 22:53 Absolute Eosinophils 0.0 10^3/cmm (0.0-0.7) 05/10/22 22:53 Basophils (Manual) 0.0 % 05/10/22 22:53 Absolute Basophils 0.0 10^3/cmm (0.0-0.2) 05/10/22 22:53 Metamyelocytes 1.0 % 05/10/22 22:53 Myelocytes 7.0 % 05/10/22 22:53 Nucleated RBCs # 0.0 /100WBC 05/13/22 05:34 Platelet Estimate Normal (Normal) 05/10/22 22:53 Sodium 135 mmol/L (136-145) L 05/13/22 05:34 Potassium 4.1 mmol/L (3.5-5.1) 05/13/22 05:34 Chloride 101 mmol/L (98-107) 05/13/22 05:34 Carbon Dioxide 23 mmol/L (22-29) 05/13/22 05:34 Anion Gap 15.1 (5-19) 05/13/22 05:34 BUN 12 mg/dL (8-23) 05/13/22 05:34 Creatinine 1.0 mg/dL (0.7-1.2) 05/13/22 05:34 GFR Calculation Not Reportable 05/13/22 05:34 Glucose 138 mg/dL (65-115) H 05/13/22 05:34 Calculated Osmolality 282 mOsm/kg (285-295) L 05/13/22 05:34 Lactate 1.6 mmol/L (0.5-2.2) 05/10/22 22:53 Calcium 9.5 mg/dL (8.5-10.5) 05/13/22 05:34 Magnesium 2.2 mg/dL (1.7-2.3) 05/13/22 05:34 Total Bilirubin 0.6 mg/dL (0.15-1.2) 05/13/22 05:34 AST 26 U/L (0-40) 05/13/22 05:34 ALT 31 U/L (0-41) 05/13/22 05:34 Alkaline Phosphatase 87 U/L (40-130) 05/13/22 05:34 Total Protein 6.1 g/dL (6.6-8.7) L 05/13/22 05:34 Albumin 3.5 g/dL (3.5-5.2) 05/13/22 05:34 Globulin 2.6 g/dL (1.3-4.6) 05/13/22 05:34 Lipase 35 U/L (13-60) 05/10/22 22:53 Vitals Last Vital Signs Temp 97.5 F L 05/13/22 08:56 Pulse 76 05/13/22 08:56 Resp 17 05/13/22 08:56 BP 107/66 05/13/22 08:56 Pulse Ox 98 05/13/22 08:56 O2 Del Method 05/13/22 08:56 Discharge Plan Discharge Patient Disposition: Home Health Service Condition: Stable Prescriptions: Continued acetaminophen 325 mg Tablet 650 mg PO Q6H PRN (Reason: Pain) loperamide 2 mg capsule 2 mg PO Q4H MDD 8mg PRN (Reason: Diarrhea) Rx Instructions: for 10 days amlodipine 5 mg tablet 5 mg PO DAILY PRN (Reason: Blood Pressure) aspirin 81 mg Tablet,Delayed Release (Dr/Ec) 81 mg PO QAM tramadol 50 mg tablet 50 mg PO Q4H PRN (Reason: Pain) levothyroxine 25 mcg tablet 25 mcg PO QAM tamsulosin 0.4 mg capsule 0.8 mg PO BEDTIME benazepril 20 mg tablet 20 mg PO DAILY PRN (Reason: Blood Pressure) Held metoprolol succinate 25 mg tablet extended release 24 hr 12.5 mg PO DAILY Hold Instructions: Resume on 05/19/22. hold until you see pmd Discharge Orders: Discharge Order (Routine); Ordered 05/13/22 Ordered By: Mainor Segura Referrals: [facility] [Other] Nilay Grullon MD [Referring] - 05/16/22 10:45 am Discharge Diet: Advance as tolerated Discharge Activity: Use walker/crutches as instructed Patient Instructions: Bowel Obstruction (DC), Opioid Safety Discharge Attestations Time Spent in Discharge Care*: greater than 30 min Quality Metrics Clinical Quality Measures [ No reported AMI, CVA or VTE this stay] Coding Level of Care Code 36717 Total time (in minutes) for Discharge: 40 Diagnoses Small bowel obstruction K56.609
== END 2022-05-13 11:52 | disposition home health service (06) | DRG 389 ==
LOC: ER 05-11 01:04 → MEDSURG 05-11 01:55
PROVIDERS: Admitting Provider Student in an Organized Health Care Education/Training Program; Emergency Provider Emergency Medicine; PCP Radiology Neuroradiology; Visit Provider Family Medicine
DX: K56.609 Unspecified intestinal obstruction, unspecified as to partial versus complete obstruction (principal); C20 Malignant neoplasm of rectum; Z92.21 Personal history of antineoplastic chemotherapy; Z92.3 Personal history of irradiation; Z93.3 Colostomy status; T81.82XD Emphysema (subcutaneous) resulting from a procedure, subsequent encounter; Y83.9 Surgical procedure, unspecified as the cause of abnormal reaction of the patient, or of later complication, without mention of misadventure at the time of the procedure
CPT/HCPCS: 36415; 71045; 74018; 74176; 80053; 83605; 83690; 83735; 85007; 85025; 96372; 96374; 99285; G0378; J1650; J2060; J3490; J7042